=== PATIENT | female | born 1995 | race Caucasian/White ===

== ENCOUNTER 2023-07-15 16:32 | Inpatient (IN) | payer OTHER, SELFPAY ==
[2023-07-15 16:56] VITALS: BP 146/82; BMI 29.6
[2023-07-15] MEDS: PENICILLIN 110 UNITS IV (17:33)
[2023-07-15] MEDS: LR 1000 IV ×2 (17:33→21:27)
[2023-07-15 17:52] LABS: % Basophils 0.4 % (0-2); % Immature Granulocytes 0.4 % (0-0.5); % Lymphocytes 14.6 % (20.5-51.1); % Monocytes 6.2 % (1.7-9.3); % Neutrophils 77.4 % (42.2-75.2); Absolute Eosinophils 0.1 10^3/uL (0-0.7); Absolute Immature Granulocytes 0.1 10^3/uL (0-0.05); Absolute Lymphocytes 1.7 10^3/uL (1.2-3.4); Absolute Monocytes 0.7 10^3/uL (0.1-0.6); Absolute Neutrophils 8.8 10^3/uL (1.4-6.5); Hematocrit 36.4 % (37.0-47.0); Hemoglobin 12.4 g/dL (12.0-16.0); Mean Corp Hgb Conc. 34.1 g/dL (33.0-37.0); Mean Corpuscular Hgb 26.8 pg (27.0-31.0); Mean Corpuscular Volume 78.6 fL (81.0-99.0); Mean Platelet Volume 13.2 fL (7.4-10.4); Nucleated Red Blood Cells % 0 %; Platelet Count 214 10^3/uL (130-400); Red Blood Cell Count 4.63 10^6/uL (4.20-5.40); White Blood Cell Count 11.4 10^3/uL (4.8-10.8)
[2023-07-15 19:36] LABS: Protein/creatinine Ratio 0.1; Urine Protein 18 mg/dl
[2023-07-15 19:53] LABS: ALT (SGPT) 13 U/L (0-35); AST (SGOT) 30 U/L (14-36); Albumin 3.6 g/dl (3.5-5.0); Alkaline Phosphatase 172 U/L (38-126); Blood Urea Nitrogen 12 mg/dl (7-17); Calcium 9.4 mg/dl (8.4-10.2); Carbon Dioxide 19 mmol/L (22-30); Chloride 104 mmol/L (98-107); Estimated Creatinine Clearance > 125 ml/min; Glucose 78 mg/dl (70-99); Potassium 4.5 mmol/L (3.5-5.1); Sodium 134 mmol/L (135-145); Total Bilirubin 0.3 mg/dl (0.2-1.3); Total Protein 7.1 g/dl (6.3-8.2); eGFR > 60.00
[2023-07-15] MEDS: PITOCIN 30 UNITS/NSS 500 ML IV (20:18)
[2023-07-15] MEDS: PENICILLIN 55 UNITS IV (21:27)
[2023-07-15] MEDS: FENTANYL/BUPIVACAINE 100 EPIDURAL (22:25)
[2023-07-15] MEDS: SUBLIMAZE 100 MCG EPIDURAL (22:25)
[2023-07-16] MEDS: PENICILLIN 55 UNITS IV ×3 (01:25→08:53)
[2023-07-16] MEDS: LR 1000 IV (01:32)
[2023-07-16] MEDS: FENTANYL/BUPIVACAINE 100 EPIDURAL (05:29)
[2023-07-16] MEDS: MAALOX 30 ML PO (09:56)
[2023-07-16] MEDS: ZOLOFT 50 MG PO (14:34)
[2023-07-16] MEDS: MOTRIN 600 MG PO ×2 (16:52→23:21)
[2023-07-16] MEDS: TYLENOL 650 MG PO ×2 (16:52→23:22)
[2023-07-17 05:31] LABS: Hematocrit 29.6 % (37.0-47.0)
[2023-07-17] MEDS: MOTRIN 600 MG PO (05:36)
[2023-07-17] MEDS: TYLENOL 650 MG PO (05:36)
[2023-07-17] MEDS: ZOLOFT 50 MG PO (08:05)
[2023-07-17] MEDS: PRENATAL PLUS 1 TABLET PO (08:05)
[2023-07-18] MEDS: PRENATAL PLUS 1 TABLET PO (08:44)
[2023-07-18] MEDS: ZOLOFT 50 MG PO (08:44)
[2023-07-18] MEDS: MOTRIN 600 MG PO (08:44)
[2023-07-18] MEDS: SENOKOT-S 1 TABLET PO (08:44)
[2023-07-20 16:23] LABS: Syphilis/T. pallidum Ab Reflex Negative (Negative)
== END 2023-07-18 12:30 | disposition home or self-care (01) | DRG 807 ==
LOC: LDRP 16:32
PROVIDERS: Obstetrics & Gynecology; ADMITTING PHYSICIAN Obstetrics & Gynecology; CONSULT PHYSICIAN Anesthesiology; CONSULT PHYSICIAN Nurse Anesthetist, Certified Registered; CONSULT PHYSICIAN Registered Nurse; CONSULT PHYSICIAN Specialist; CONSULT PHYSICIAN Student in an Organized Health Care Education/Training Program; FAMILY PHYSICIAN Physician Assistant Medical
PROC: 10E0XZZ Delivery of Products of Conception, External Approach (ICD-10-PCS; 2023-07-16)
PROC: 0KQM0ZZ Repair Perineum Muscle, Open Approach (ICD-10-PCS; 2023-07-16)
DX: O70.1 Second degree perineal laceration during delivery (principal); Z37.0 Single live birth; O99.824 Streptococcus B carrier state complicating childbirth; Z3A.39 39 weeks gestation of pregnancy
CPT/HCPCS: 36415; 80053; 82570; 84156; 85014; 85018; 85025; 86780; 86850; 86900; 86901

== ENCOUNTER → 2024-06-08 15:46 | Outpatient (REF) | payer OTHER, SELFPAY | LOC: HWRAD 15:46 | PROVIDERS: ATTENDING PHYSICIAN Physician Assistant Medical | DX: S69.92XA Unspecified injury of left wrist, hand and finger(s), initial encounter (principal) | CPT/HCPCS: 73130 ==